=== PATIENT | male | born 1955 | race Caucasian/White ===

== ENCOUNTER → 2018-02-19 | Outpatient (CLI) | payer BC ==
[~2018-02-19] MED LIST: ASPI-764 PO; EPIN0.3P15 IM; MELO-205 PO; METO100T20 PO; PERCOCET PO; SIMV-49 PO; ZOLP-358 PO; ZOST19404 SQ
[2018-02-19 08:07] LABS: PLATELET COUNT, AUTOMATED 173 K/uL (150-450)
[2018-02-19 08:29] LABS: LDL CHOLESTEROL 96 mg/dl
== END ==
LOC: LAB 07:47
PROVIDERS: ATTEND Nurse Practitioner Family
DX: Z12.5 Encounter for screening for malignant neoplasm of prostate (principal); E78.00 Pure hypercholesterolemia, unspecified; I47.1 Supraventricular tachycardia
CPT/HCPCS: 36415; 82040; 82247; 82310; 82374; 82435; 82465; 82565; 82947; 83718; 84075; 84132; 84153; 84155; 84295; 84443; 84450; 84460; 84478; 84520; 85025

== ENCOUNTER 2018-06-30 02:48 | Inpatient (IN) | payer BC ==
[2018-06-10 07:37] LABS: PLATELET COUNT, AUTOMATED 198 K/uL (150-450)
--- NOTE | 2018-06-10 07:38 | EKG ---
FACILITY: [facility] PATIENT NAME: LORI GUZMAN : [id number] MR: [id number] V: [id number] EXAM DATE: ORDERING PHYSICIAN: ASHWIN VEGA TECHNOLOGIST: BEBE Oakley Reason : PRE-OP KNEE Blood Pressure : / mmHG Vent. Rate : 064 BPM Atrial Rate : 064 BPM P-R Int : 138 ms QRS Dur : 092 ms QT Int : 428 ms P-R-T Axes : 027 078 001 degrees QTc Int : 441 ms Normal sinus rhythm Normal ECG When compared with ECG of 30-MAY-2015 07:17, T wave inversion now evident in Anterior leads Confirmed by Asad Calloway ([id number]) on 06/10/2018 11:23:25 PM Referred By: GARY Confirmed By:Asad Fernandes
[2018-06-29 15:29] LABS: INR 0.91
[2018-06-30] VITALS (19 sets, daily range): BP systolic 92–135; BP diastolic 63–88
[~2018-06-30] VITALS: Ht 170.2 cm; Wt 65.3 kg
[~2018-06-30 02:48] MED LIST changes: +FLU60VIA41 IM; +SIMV-54 PO
[2018-06-30] MEDS ORDERED: fentaNYL CITR 250 MCG/5 ML AMP ONE (06:30)
[2018-06-30] MEDS ORDERED: LIDOCAINE MPF 1% 5 ML VIAL ONE (06:34)
[2018-06-30] MEDS ORDERED: DEXAMETHASONE SOD PHOS 10MG/ML ONE (06:34)
[2018-06-30] MEDS ORDERED: PROPOFOL EMUL(*) 10MG/ML 20 ML 20 ML ONE (06:34)
[2018-06-30] MEDS ORDERED: ONDANSETRON 4 MG/2 ML VIAL ONE (06:34)
[2018-06-30] MEDS ORDERED: KETAMINE HCL 200 MG/20 ML MDV ONE (06:37)
[2018-06-30] MEDS ORDERED: EPINEPHrine HCL 1 MG/ML AMP ONE (06:38)
[2018-06-30] MEDS ORDERED: SUGAMMADEX SOD 200 MG/2 ML SDV ONE (06:41)
[2018-06-30] MEDS ORDERED: ROPIVACAINE 0.2% 20 ML VIAL ONE (06:41)
[2018-06-30] MEDS ORDERED: ROCURONIUM BROM 10 MG/ML 5 ML ONE (07:24)
[2018-06-30] MEDS ORDERED: ePHEDrine 25 MG/5 ML DISP.SYR IVP ONE (07:34)
[2018-06-30] MEDS ORDERED: LACTATED RINGER 3000 ML BAG IR ONE (07:51)
[2018-06-30] MEDS ORDERED: NS 0.9% IRRIGATION 1000ML PLCT IR ONE (07:52)
[2018-06-30] MEDS ORDERED: LIDOCAINE/SOD BICARB 8.4% SYR ID ONE (08:55)
[2018-06-30] MEDS ORDERED: ROPIVACAINE/EPI/CLONIDINE/KET 50 ML SYRINGE INJ ONE (08:55)
[2018-06-30] MEDS ORDERED: MIDAZOLAM 2 MG/2 ML VIAL IVP PRN (08:55)
[2018-06-30] MEDS ORDERED: NORMOSOL R SOLN(*) 1000 ML BAG 1,000 ML IV PRN ×2 (08:55→11:10)
[2018-06-30] MEDS ORDERED: PREGABALIN 150 MG CAPSULE PO ONE (08:55)
[2018-06-30] MEDS ORDERED: FAMOTIDINE 20 MG TAB PO ONE (08:55)
[2018-06-30] MEDS ORDERED: ACETAMINOPHEN 500 MG TAB PO ONE (08:55)
[2018-06-30] MEDS ORDERED: ROPIVACAINE 0.2% 400 MG/200ML 250 ML CONINFUS ONE (08:55)
[2018-06-30] MEDS ORDERED: TRANEXAMIC AC 1000 MG/10ML SDV 1,000 MG in DEXTROSE 5% 50 ML BAG 50 ML IV ONE (08:55)
[2018-06-30] MEDS ORDERED: CELECOXIB 200 MG CAP PO ONE (08:55)
[2018-06-30] MEDS ORDERED: ceFAZolin(*) 1 GM VIAL 1 GM in NS(*) 0.9% 100 ML ADDVANT BAG 100 ML IVPB ONE (08:55)
[2018-06-30] MEDS ORDERED: fentaNYL CITR 100 MCG/2 ML AMP ONE ×2 (09:15→10:01)
[2018-06-30] MEDS ORDERED: KETOROLAC 30 MG/ML VIAL ONE (10:02)
--- NOTE | 2018-06-30 10:13 | RADIOLOGY IMAGING REPORT ---
[place] [facility] [place] NAME: Ousmane Mehta : 1955 MR: [id number] V: [id number] EXAM DATE: ORDERING PHYSICIAN: ASHWIN VEGA TECHNOLOGIST: Location: [facility] [place] Patient: Ousmane Mehta : 1955 Visit/Account:[id number] Date of Sevice: 06/30/2018 KNEE LIMITED RIGHT Indication: Arthroplasty. Comparison: None available Findings: 2 views right knee were obtained. A right total knee arthroplasty with patellar resurfacing has been placed. Components project in chris ropriate alignment. No fracture. There is gas within the joint space and within the operative bed. IMPRESSION: 1. Right total knee arthroplasty in near-anatomic alignment. Report Dictated By: Greg Blank at 06/30/2018 10:09 AM Report E-Signed By: Greg Blank at 06/30/2018 10:10 AM WSN:[id number]
[2018-06-30] MEDS ORDERED: FLUSH 10 ML SYR IVP PRN (11:10)
[2018-06-30] MEDS ORDERED: ONDANSETRON 4 MG/2 ML VIAL IVP PRN (11:10)
[2018-06-30] MEDS ORDERED: MAGNESIUM HYDROXIDE* 30ML UDCP PO PRN (11:10)
[2018-06-30] MEDS ORDERED: oxyCODONE HCL 5 MG CAP PO PRN (11:10)
[2018-06-30] MEDS ORDERED: BISACODYL 10 MG SUPP PR PRN (11:10)
[2018-06-30] MEDS ORDERED: MORPHINE 4 MG/ML SDV IVP PRN (11:10)
[2018-06-30] MEDS ORDERED: PROMETHAZINE 25 MG/ML 1 ML AMP IVP PRN (11:10)
[2018-06-30] MEDS: traMADol 50 MG TAB PO PRN ×2 (12:58→19:15)
--- NOTE | 2018-06-30 13:05 | OPERATIVE REPORT 1 ---
EVENT DATE: June 30, 2018 SURGEON: Jerome Nieto MD ANESTHESIOLOGIST: Billy Green MD ANESTHESIA: Right adductor canal indwelling block with general anesthesia. LEAD DATABASE DEVELOPER: Balaji Lazo PA-C PREOPERATIVE DIAGNOSIS Right knee degenerative joint disease. POSTOPERATIVE DIAGNOSIS Right knee degenerative joint disease. PROCEDURE PERFORMED Right total knee arthroplasty. IMPLANTS MicroPort medial pivot shift CS system with a 4 femur, 5 tibia, 0 mm CS insert, 8 x 32 symmetric patella and femur cut 6 degrees valgus, 10 mm. We utilized two packages of DonJoy Yeoman Blue cement and 50 cc of our standard Toradol/ropivacaine cocktail and ZipLine Wound Closure System. SPECIMENS None. COMPLICATIONS None. BLOOD LOSS Less than 200 cc. OPERATION The patient was brought to the OR after receiving preoperative antibiotic and Dr. Green performed right adductor canal block followed by general anesthesia. Right thigh tourniquet was placed but was not utilized. Right lower extremity was prepped and draped in the usual sterile fashion. Midline incision was made followed by a medial parapatellar arthrotomy. Eburnation and erosion of the patellofemoral joint, particularly the lateral trochlea. There were significant changes in the medial femoral condyle. The fat pad was excised by Bovie. We noted calcification in the suprapatellar pouch and gutter and these were excised by Bovie. We dissected subperiosteally along the medial tibial plateau to the level of the semimembranosus insertion. The knee was hyperflexed. ACL and PCL were released subperiosteally by Bovie. Remaining articular cartilage was removed from the distal femoral condyles. On the medial side, there were significant cystic and calcific deposits in the weightbearing surface of the medial femoral condyle. Step-cut drill was utilized to broach the canal. We placed our intramedullary guide and set this up for a 6-degree valgus 10 mm cut. Care was taken to protect the soft tissue. Distal cut was made. 3-degree external rotation guide and sizer was then positioned, referencing off the anterior phalange, epicondyles and posterior condyles and 3- degree external rotation holes were obtained and the femur sized to a #4. Four-in-one cutting guide was placed as well as Z retractors to protect the soft tissue and we made our four cuts. We brought the tibia inferiorly in the femur with appropriate retractors and step-cut drill was utilized to broach the tibial canal. We placed the intramedullary tibial guide, referencing for 10 mm off the least involved lateral tibial plateau. We set up our depth of cut and our rotation, pinned out block in place with care taken to protect the soft tissues and made our tibial cut and this was sized to a 5. We them removed the stump of the ACL and PCL, medial and lateral meniscus by Bovie. Posterior capsule was elevated with a Logan elevator. We then placed our tibial baseplate, referencing from rotation, pinned this in place, placed a 10 mm insert and then our #4 femur. We had full extension. Flexion limited only by body habitus to about 140 degrees, stability to varus and valgus stress and 80 degrees with good endpoint and anterior drawer. The knee was brought in full extension. The high side of the patella was sized to 19 mm. We set up the soft 6 mm cut with our guide and made our cut and we were at 14 mm. This was sized to a 32 x 8. The peg hole trial was positioned inferiorly medially, peg holes drilled, and the knee brought up into flexion. Peg hole was drilled for femur and pegs placed and a trochlear chip was cut and a chip placed. Again, the aforementioned range of motion was 0 to 140 degrees, stability to varus and valgus stress. The patella tracked well. Stability noted in the anterior drawer. The patella, femur, tibial insert were removed. Appropriate retractors were placed to expose the tibial baseplate. We placed our tower and cut, reamed and punched for our keel. Instrumentation was removed. Bone plug placed in the distal femur. We brought the knee out in full extension. I copiously irrigated by pulse lavage while we mixed two packages of DonJoy Yeoman blue cement. We injected 10 cc of our cocktail into the posterior capsule, placed the knee in appropriate position and again irrigated. Starting at the tibia, we cemented this into place followed by our 10 mm insert and our femur. Excess cement was removed. Knee was brought out in full extension with axial compression while we cemented the patella. We then injected the remaining 40 cc of cocktail in the quad mechanism, copiously irrigated once again while we applied axial compression in extension. It took 14 minutes for the cement to cure and again we had the aforementioned range of motion and stability. We copiously irrigated once again, placed the knee at 30 degrees, closed the arthrotomy with #2 Vicryl in [id number] suture fashion followed by 2-0 Vicryl in the subcutaneous tissues. We cleaned the wound, placed the knee at 45 degrees and placed ZipLine Wound Closure system. We then placed the knee in full extension and applied our compression dressing. Patient was extubated and taken to recovery in stable condition. Hospitalist team will be consulted for medical management and anticoagulation, PT for rehab. JOE
--- NOTE | 2018-06-30 13:25 | Hospitalist Consultation ---
History of Present Illness Requesting Physician Dr. Nieto Reason for Consult Medical Management Chief Complaint s/p right knee replacement History of Present Illness He was admitted s/p right knee replacement. It is reported the surgery went well and without complication. History Problems: (1) Hypercholesterolemia Status: Chronic (2) Paroxysmal supraventricular tachycardia Status: Chronic Home Meds Active Scripts Simvastatin (SIMVASTATIN) 40 Mg Tablet, 1 TAB PO HS, #90 TAB 4 Refills Prov:OXANA GOODE APRN 02/21/18 Metoprolol Succinate (METOPROLOL SUCCINATE) 100 Mg Tab.er.24h, 1 TAB PO QDAY, #90 TAB 4 Refills Prov:OXANA GOODE APRN-Sally 02/21/18 Meloxicam (MELOXICAM) 7.5 Mg Tablet, 1 TAB PO QDAY, #90 TAB 4 Refills Prov:OXANA GOODE APRN-Sally 02/21/18 Epinephrine (EPIPEN 2-KEEGAN) 0.3 Mg/0.3 Ml Pen.injctr, 0.3 MG IM PRN, #1 BOX 0 Refills Prov:OXANA GOODE APRN 12/28/16 Discontinued Scripts Zolpidem Tartrate (ZOLPIDEM TARTRATE) 10 Mg Tablet, 1 TAB PO HS PRN for SLEEP, #90 TAB 1 Refill Prov:OXANA GOODE APRN-Sally 02/21/18 Allergies: Coded Allergies: BEE STINGS (Unverified Allergy, Severe, ANAPHYLAXIS, 12/04/13) Hornets codeine (Verified Allergy, Intermediate, ITCHING, 09/19/09) Uncoded Allergies: hayfever (Allergy, Mild, UNKNOWN, 09/18/11) Patient History: FH: breast cancer MOTHER (Metastatic CA, Breast Cancer), , Age:83 FH: cancer MOTHER (Metastatic CA, Breast Cancer), , Age:83 Paternal Grandmother (Cancer), , Age:60 years and older FH: diabetes mellitus Paternal Grandfather (Diabetes; Myocardial Infarction), , Age:72 FH: hypercholesterolemia FATHER (Hypertension, Hypothyroidism, Hypercholesterolemia), Age:99 FH: hypertension FATHER (Hypertension, Hypothyroidism, Hypercholesterolemia), Age:99 FH: hypothyroidism FATHER (Hypertension, Hypothyroidism, Hypercholesterolemia), Age:99 FH: myocardial infarction Maternal Grandfather (Myocardial Infarction), , Age:50's - 60 Paternal Grandfather (Diabetes; Myocardial Infarction), , Age:72 Hx Smoking: No Smoking Status: Never Smoker Caffeine Intake: Coffee Caffeine/Cups Per Day: 3 CCD Hx Alcohol Use: Yes Hx Substance Use Disorder: No Social Drug Use: Never Review of Systems All Systems Reviewed/Normal: Yes, Except as Noted Exam Vital Signs Vital Signs Date Time Temp Pulse Resp B/P (MAP) Pulse Ox O2 Delivery O2 Flow Rate FiO2 06/30/18 12:58 85 20 114/80 (91) 92 Nasal Cannula 1.0 06/30/18 05:48 97.5 General Appearance: Alert, Awake, No Acute Distress, Afebrile Neuro: No Gross deficits Cardiovascular: Regular Rate and Rhythm Respiratory: No Respiratory Distress, Clear to Auscultation GI: Abd Soft and Non-Tender Extremities: Warm, Perfused; No Edema Psych: Alert & Oriented X3, Appropriate Mood & Affect Assessment and Plan Problems: (1) S/P knee replacement Status: Acute Assessment & Plan: Followed by Dr. Nieto. He will be started on Aspirin for DVT prophylaxis. (2) Paroxysmal supraventricular tachycardia Status: Chronic Assessment & Plan: He is on chronic treatment with Metoprolol. This has been restarted with hold parameters. (3) Hypercholesterolemia Status: Chronic Assessment & Plan: He is on chronic treatment with Simvastatin. Continue. Venous Thromboembolism Antithrombotics Is Pt On Any Antithrombotics?: No Problem Qualifiers (1) S/P knee replacement: Laterality: right Qualified Codes: Z96.651 - Presence of right artificial knee joint HAL BRYANT [facility] Jun 30, 2018 13:25
--- NOTE | 2018-06-30 14:50 | NUR ---
Physical Therapy Impression PT eval complete. Pt able to perform bed mobility with SBA, transfer with SBA, ambulate to/from the bathroom using a RW and SBA. CPM fitted and running 0-40 deg. Recommend OP PT which has already been set up by the patient. Physical Therapy Goals 1. Mod I bed mobility. 2. Mod I transfers. 3. Mod I gait x 150' with appropriate assistive device. 4. Ascend/descend 2 stairs SBA using crutches. 5. Independent use of CPM. Patient's Goals
[2018-06-30] MEDS ORDERED: NS(*) 0.9% 250 ML BAG 250 ML ONE (15:19)
[2018-06-30] MEDS: ceFAZolin(*) 1 GM VIAL 1 GM in NS(*) 0.9% 100 ML ADDVANT BAG 100 ML IVPB SCH ×2 (15:31→22:36)
[2018-06-30] MEDS: KETOROLAC TROM 10MG TAB PO PRN ×2 (16:16→22:34)
[2018-06-30] MEDS: ACETAMINOPHEN 500 MG TAB PO SCH (16:17)
[2018-06-30] MEDS: ZOLPIDEM TARTRATE 5 MG TAB PO PRN (22:35)
[2018-07-01] MEDS: traMADol 50 MG TAB PO PRN ×4 (01:17→19:38)
[2018-07-01] MEDS: ACETAMINOPHEN 500 MG TAB PO SCH ×3 (01:17→17:25)
[2018-07-01 03:03] VITALS: BP 123/78
[2018-07-01] MEDS: KETOROLAC TROM 10MG TAB PO PRN ×4 (04:35→23:04)
[2018-07-01] MEDS: ceFAZolin(*) 1 GM VIAL 1 GM in NS(*) 0.9% 100 ML ADDVANT BAG 100 ML IVPB SCH (06:18)
[2018-07-01 07:20] VITALS: BP 121/79
--- NOTE | 2018-07-01 08:55 | NUR ---
Physical Therapy Impression Pt progressing well with functional mobility. Oriana for bed mobility and transfers with RW. Ambulation x250' with RW, pt demonstrating good step through gait pattern-- SBA/Oriana for ambulation. Plan to address crutch and stair training with PM visit. Physical Therapy Goals 1. Mod I bed mobility. 2. Mod I transfers. 3. Mod I gait x 150' with appropriate assistive device. 4. Ascend/descend 2 stairs SBA using crutches. 5. Independent use of CPM. Patient's Goals
[2018-07-01 08:56] VITALS: Ht 170.2 cm; Wt 65.3 kg
[2018-07-01] MEDS: ASPIRIN 325 MG TAB PO SCH (09:20)
[2018-07-01] MEDS: METOPROLOL SUCC XL 50 MG TABCR 50 MG TAB.ER.24H PO SCH (09:20)
[2018-07-01] MEDS: SIMVASTATIN 40 MG TAB PO SCH (09:26)
[2018-07-01] MEDS: DOCUSATE SODIUM 100 MG CAP PO SCH ×2 (09:42→21:20)
--- NOTE | 2018-07-01 10:07 | Hospitalist Progress Note ---
Subjective Progress Notes Subjective He was admitted s/p knee replacement. He is doing well post-operatively. He has no complaints. He had no acute events overnight. Patient Complains of: Cardiovascular: No: Chest Pain Respiratory: No: Shortness of Breath Physical Exam Vital Signs Date Time Temp Pulse Resp B/P (MAP) Pulse Ox O2 Delivery O2 Flow Rate FiO2 07/01/18 07:34 90 Room Air 07/01/18 07:20 97.8 62 16 121/79 (93) 0.5 Intake and Output 07/01/18 07:00 Intake Total 4683 ml Output Total 150 ml Balance 4533 ml Intake Oral 980 ml IV Total 1953 ml Other 1750 ml Output Estimated Blood Loss 150 ml # Voids 4 General Appearance: Alert, Awake, No Acute Distress, Afebrile Neuro: No Gross deficits Cardiovascular: Regular Rate and Rhythm Respiratory: No Respiratory Distress, Clear to Auscultation GI: Soft and Non-Tender Psych: Alert & Oriented X3, Appropriate Mood & Affect Assessment and Plan Problems: (1) S/P knee replacement Status: Acute Assessment & Plan: Followed by Dr. Nieto. He will be started on Aspirin for DVT prophylaxis. (2) Paroxysmal supraventricular tachycardia Status: Chronic Assessment & Plan: He is on chronic treatment with Metoprolol. This has been restarted with hold parameters. (3) Hypercholesterolemia Status: Chronic Assessment & Plan: He is on chronic treatment with Simvastatin. Continue. Exam Sepsis Risk: No Definite Risk Problem Qualifiers (1) S/P knee replacement: Laterality: right Qualified Codes: Z96.651 - Presence of right artificial knee joint HAL BRYANTP Jul 01, 2018 10:07
[2018-07-01 11:01] VITALS: BP 130/76
[2018-07-01] MEDS ORDERED: EPINEPHrine HCL 1 MG/ML AMP ONE (13:01)
[2018-07-01] MEDS ORDERED: ROPIVACAINE 0.5% 20 ML VIAL ONE ×2 (13:02→15:34)
--- NOTE | 2018-07-01 15:19 | NUR ---
Physical Therapy Impression Pt is [place] with all mobility with use of axillary crutches for ambulation. PT fit pt's crutches prior to ambulation with instruction to avoid WBing through axilla. PT instruction for stair negotiation, with pt demonstating excellent tolerance. Pt plans to d/c with OP PT services. Physical Therapy Goals 1. Mod I bed mobility. 2. Mod I transfers. 3. Mod I gait x 150' with appropriate assistive device. 4. Ascend/descend 2 stairs SBA using crutches. 5. Independent use of CPM. Patient's Goals
--- NOTE | 2018-07-01 16:13 | NUR ---
Anesthesiologist was notified of pt's potential Ropivacaine AMBU pump malfunction as leakage was noted around pt's catheter site. At 1430 pt's pump was d/c'd and the physician administered a one time dose of ropivacaine to affected limb for further pain relief/management.
[2018-07-01 16:46] VITALS: BP 117/78
[2018-07-01 18:39] VITALS: BP 129/81
[2018-07-01] MEDS: ZOLPIDEM TARTRATE 5 MG TAB PO PRN (21:21)
[2018-07-01 23:38] VITALS: BP 134/84
[2018-07-02] MEDS: traMADol 50 MG TAB PO PRN ×2 (01:47→07:59)
[2018-07-02] MEDS: ACETAMINOPHEN 500 MG TAB PO SCH ×2 (01:47→07:58)
[2018-07-02 04:14] VITALS: BP 133/67
[2018-07-02] MEDS: KETOROLAC TROM 10MG TAB PO PRN (05:21)
[2018-07-02] MEDS ORDERED: ASPI-757 PO (07:53)
[2018-07-02] MEDS: METOPROLOL SUCC XL 50 MG TABCR 50 MG TAB.ER.24H PO SCH (07:58)
[2018-07-02] MEDS: SIMVASTATIN 40 MG TAB PO SCH (07:59)
[2018-07-02] MEDS: DOCUSATE SODIUM 100 MG CAP PO SCH (07:59)
[2018-07-02] MEDS: ASPIRIN 325 MG TAB PO SCH (07:59)
[2018-07-02] MEDS ORDERED: oxyCODONE HCL 5 MG CAP PO PRN (08:10)
[2018-07-02] MEDS ORDERED: KET10 PO (09:17)
[2018-07-02] MEDS ORDERED: OXYC5CAP21 PO (09:21)
[2018-07-02] MEDS ORDERED: TRAM-420 PO (09:23)
--- NOTE | 2018-07-02 12:05 | Hospitalist Progress Note ---
Subjective Progress Notes Subjective He was admitted s/p knee replacement. He has no complaints. He had no acute events overnight. Patient Complains of: Cardiovascular: No: Chest Pain Respiratory: No: Shortness of Breath Physical Exam Vital Signs Date Time Temp Pulse Resp B/P (MAP) Pulse Ox O2 Delivery O2 Flow Rate FiO2 07/02/18 04:14 98.8 83 18 133/67 (89) 90 Room Air 07/01/18 07:20 0.5 Intake and Output 07/02/18 01:00 Intake Total 1707 ml Balance 1707 ml Intake Oral 1600 ml IV Total 107 ml # Voids 4 General Appearance: Alert, Awake, No Acute Distress, Afebrile Neuro: No Gross deficits Cardiovascular: Regular Rate and Rhythm Respiratory: No Respiratory Distress, Clear to Auscultation GI: Soft and Non-Tender Psych: Alert & Oriented X3, Appropriate Mood & Affect Assessment and Plan Problems: (1) S/P knee replacement Status: Acute Assessment & Plan: Followed by Dr. Nieto. He will be started on Aspirin for DVT prophylaxis. (2) Paroxysmal supraventricular tachycardia Status: Chronic Assessment & Plan: He is on chronic treatment with Metoprolol. This was restarted with hold parameters. (3) Hypercholesterolemia Status: Chronic Assessment & Plan: He is on chronic treatment with Simvastatin. Continue. Exam Sepsis Risk: No Definite Risk Problem Qualifiers (1) S/P knee replacement: Laterality: right Qualified Codes: Z96.651 - Presence of right artificial knee joint HAL BRYANT [employer] Jul 02, 2018 12:05
--- NOTE | 2018-07-04 02:13 | DISCHARGE SUMMARY ---
DATE OF ADMISSION: June 30, 2018 DATE OF DISCHARGE: July 02, 2018 HISTORY Patient is a 63-year-old male admitted to Day Surgery. He underwent right total knee arthroplasty without complication. Postoperatively, the hospitalist team was consulted for medical management and anticoagulation, PT for rehab. He progressed in a satisfactory fashion, but the second postop night he had difficulty with pain. I had ordered oxycodone, but this was not given secondary to misunderstanding by the pharmacy that he was allergic to this. He only gets some itching; it is not a true allergy. In the morning, he got the oxycodone. On the day of discharge, he is feeling a lot better. Wounds are clean, dry, and intact. The right lower extremity is neurovascularly intact. After he is cleared by hospitalist team and PT, plan is for discharge to home, outpatient PT, home CPM, and Tylenol, Toradol, tramadol, and OxyIR for pain. He will follow up next week in my [facility]. PRINCIPAL DIAGNOSIS Right knee degenerative joint disease. PRINCIPAL PROCEDURE Right total knee arthroplasty. JOE
== END 2018-07-02 10:25 | disposition home or self-care (01) | DRG 470 ==
LOC: OR 02:48 → MED 10:55 → OBSVTOIN 10:55
PROVIDERS: ADMIT Orthopaedic Surgery; ATTEND Orthopaedic Surgery
PROC: 0SRC0J9 Replacement of Right Knee Joint with Synthetic Substitute, Cemented, Open Approach (ICD-10-PCS; principal; 2018-06-30 07:08)
DX: M17.11 Unilateral primary osteoarthritis, right knee (principal); I47.1 Supraventricular tachycardia; E78.00 Pure hypercholesterolemia, unspecified; Z96.652 Presence of left artificial knee joint; Z88.5 Allergy status to narcotic agent
CPT/HCPCS: 36415; 76942; 81001; 82040; 82247; 82310; 82374; 82435; 82565; 82947; 84075; 84132; 84155; 84295; 84450; 84460; 84520; 85025; 85610; 86850; 86900; 86901; 93005; 97161; C1713; C1776; J0171; J0690; J1100; J1885; J2001; J2250; J2405; J2704; J2795; J3010; J3490; J7050; J7060